=== PATIENT | female | born 1960 | race Caucasian/White ===

== ENCOUNTER → 2024-02-24 14:12 | Outpatient (REF) | payer OTHER, SELFPAY | LOC: HWWDC 14:12 | PROVIDERS: ATTENDING PHYSICIAN Obstetrics & Gynecology; FAMILY PHYSICIAN Nurse Practitioner Family | DX: Z78.0 Asymptomatic menopausal state (principal); Z12.31 Encounter for screening mammogram for malignant neoplasm of breast | CPT/HCPCS: 77063; 77067; 77080 ==

== ENCOUNTER → 2025-01-15 13:04 | Outpatient (REF) | payer OTHER, SELFPAY | LOC: HWRAD 13:04 | PROVIDERS: ATTENDING PHYSICIAN Nurse Practitioner Family | DX: R10.9 Unspecified abdominal pain (principal) | CPT/HCPCS: 76770 ==